=== PATIENT | female | born 1995 | race African-American/Black ===

== ENCOUNTER 2018-02-11 10:46 | Emergency (ER) | payer OTHER ==
[~2018-02-11] VITALS: Ht 167.6 cm; Wt 59.9 kg
[~2018-02-11 10:46] MED LIST: CEFADROXIL500 MG PO; CEFTIN250 MG PO; MACROBID 100 M100 MG PO
== END 2018-02-11 17:27 | disposition home or self-care (01) ==
LOC: ER 10:46
DX: R10.2 Pelvic and perineal pain (principal); N83.02 Follicular cyst of left ovary

== ENCOUNTER 2018-05-19 23:19 | Emergency (ER) | payer OTHER ==
[~2018-05-19] VITALS: Ht 167.6 cm; Wt 61.7 kg
[2018-05-20] MEDS ORDERED: NORFLEX100MG PO (03:12)
[2018-05-20] MEDS ORDERED: NAPROXEN SODIU550 M1 PO (03:12)
== END 2018-05-20 03:30 ==
LOC: ER 23:19
DX: R10.84 Generalized abdominal pain (principal)

== ENCOUNTER → 2018-09-13 | Emergency (ER) | payer OTHER ==
[~2018-09-13] VITALS: Ht 167.6 cm; Wt 59.0 kg
[~2018-09-13] MED LIST changes: +NAPROXEN SODIU550 M1 PO; +NORFLEX100MG PO
== END | disposition home or self-care (01) ==
LOC: ER 22:01
DX: R10.2 Pelvic and perineal pain (principal); Z33.1 Pregnant state, incidental

== ENCOUNTER 2018-12-31 05:37 | Outpatient (CLI) | payer OTHER ==
[~2018-12-31 05:37] MED LIST changes: -CEFUROXIME250 MG PO
[2018-12-31] MEDS ORDERED: CEFUROXIME250 MG PO ×2 (14:05)
== END 2018-12-31 15:30 | disposition home or self-care (01) ==
LOC: OBS/DEL 05:37
DX: O23.42 Unspecified infection of urinary tract in pregnancy, second trimester (principal); O26.892 Other specified pregnancy related conditions, second trimester; R10.2 Pelvic and perineal pain; Z34.82 Encounter for supervision of other normal pregnancy, second trimester

== ENCOUNTER → 2018-12-31 | Emergency (ER) | payer OTHER ==
[~2018-12-31] MED LIST changes: +CEFUROXIME250 MG PO
== END | disposition left against medical advice (07) ==
LOC: ER 03:30
DX: Z53.20 Procedure and treatment not carried out because of patient's decision for unspecified reasons (principal)